=== PATIENT | male | born 1950 ===

== ENCOUNTER 2019-03-23 08:24 | Outpatient (CLI) | payer OTHER | END 2019-03-23 08:30 | disposition home or self-care (01) | LOC: LAB 08:24 | DX: E78.49 Other hyperlipidemia (principal); Z11.59 Encounter for screening for other viral diseases; B19.9 Unspecified viral hepatitis without hepatic coma ==

== ENCOUNTER 2020-04-14 06:00 | Outpatient (CLI) | payer OTHER | END 2020-04-14 15:13 | disposition home or self-care (01) | LOC: PPH VACUNA 06:00 | DX: Z23 Encounter for immunization (principal) | CPT/HCPCS: 90688; G0008 ==

== ENCOUNTER 2020-08-01 03:16 | Outpatient (CLI) | payer OTHER | END 2020-08-01 03:18 | disposition home or self-care (01) | LOC: PPH VACUNA 03:16 | PROVIDERS: ATTEND Emergency Medicine Pediatric Emergency Medicine | DX: Z23 Encounter for immunization (principal) ==

== ENCOUNTER 2022-03-27 08:00 | Outpatient (CLI) | payer OTHER | END 2022-03-27 08:05 | disposition home or self-care (01) | LOC: PPH VACUNA 08:00 | PROVIDERS: ATTEND Emergency Medicine Pediatric Emergency Medicine | DX: Z23 Encounter for immunization (principal) | CPT/HCPCS: 90686; G0008 ==

== ENCOUNTER 2024-11-22 07:16 | Outpatient (CLI) | payer OTHER | END 2024-11-22 07:17 | disposition home or self-care (01) | LOC: NUCLEAR 07:16 | PROVIDERS: ATTEND Internal Medicine | DX: I10 Essential (primary) hypertension (principal) ==